=== PATIENT | male | born 1945 | race Caucasian/White ===

== ENCOUNTER 2018-05-31 20:48 | Inpatient (IN) | payer OTHER ==
[~2018-05-31] VITALS: Ht 167.6 cm; Wt 108.2 kg
--- NOTE | ~2018-05-31 | EKG ---
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 : 1945 Requested By: Reinaldo Man Order Number: [id number] MD: Johnson Aguilar Measurements Intervals [place] Rate: 81 P: -5 [place]: 179 QRS: -75 QRSD: 167 T: 101 QT: 458 QTc: 532 Interpretive Statements Atrial-sensed ventricular-paced complexes No further rhythm analysis attempted due to paced rhythm LVH with IVCD, LAD and secondary repol abnrm Prolonged QT interval No previous ECG available for comparison Electronically Signed On 05-31-2018 23:12:53 CDT by Johnson Aguilar [email or web address] <ELECTRONICALLY SIGNED> By: Johnson Aguilar MD 05/31/18 2312 48 48 Johnson Aguilar MD /EPI
--- NOTE | ~2018-05-31 | EKG ---
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
--- NOTE | ~2018-05-31 | EKG ---
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1945 Requested By: Babar Gil Order Number: [id number] MD: Johnson Aguilar Measurements Intervals [place] Rate: 61 P: -53 [place]: 166 QRS: -78 QRSD: 170 T: 109 QT: 500 QTc: 504 Interpretive Statements Ventricular-paced complexes No further analysis attempted due to paced rhythm Compared to ECG 06/01/2018 15:29:46 Atrial-sensed ventricular-paced complex(es) or rhythm no longer present Electronically Signed On 06-02-2018 13:31:38 CDT by Johnson Aguilar [email or web address] <ELECTRONICALLY SIGNED> By: Johnson Aguilar MD 06/02/18 1331 0754 0754 Johnson Aguilar MD /EPI
--- NOTE | ~2018-05-31 | CATHLAB ---
[facility] [address] [place] [address] INVASIVE PROCEDURE REPORT Name: DILEEP VALDOVINOS Room #: 204-P [facility] IN [facility].#: [id number] Admission: 05/31/18 Attend Phys: Cameron Barrios Discharge: 06/02/18 Date of : 45 Date of Service: 06/03/18 1348 Report #: [id number] THIS REPORT FOR: //name// APPROVED REPORT Study performed: 06/01/2018 12:52:54 Patient Details Patient Status: In-Patient Room #: The patient is a 73 year-old male Event Personnel Babar Gil Senior Report Developer, Candy Delacruz, Marshall Larios Knisely, Ceola RN corporate traffic manager Performed Art Access - R femoral artery* 25281 Initial Mod Sed Same Phys/QHP Gr5y 227542 22618 Mod Sed Same Phys/QHP Ea 945495 Left Heart Cath Coronaries, Bypass Grafts 9350485 LHCCORCABG JOSE ANTONIO Revasc Graft Single OM C9604 SVGREVSING Hemostasis w/ Mynx Indication Non-STEMI , Dyspnea, Unstable angina Risk Factors Chronic Lung DiseaseHypercholesterolemia, Hypertension, Tobacco History () Previous Procedures/Diagnoses Previous CABG Procedure Narrative The patient was brought urgently to the Cardiac Catheterization Laboratory and was prepped and draped in a sterile manner. The Right Groin^ was infiltrated with 1% Lidocaine subcutaneous anesthesia. A PINNACLE 6FR Sheath #[id number] sheath was inserted into the RFA^. Coronary angiography was performed using coronary diagnostic catheters. The right coronary system was accessed and visualized with a JR 4 catheter. The left coronary system was accessed and visualized with a JL 5 catheter. The left ventricle was accessed and visualized with a Pigtail catheter. Left ventriculogram was performed in HAGAN projection. Pre-demployment femoral angiogram was performed . Closure device was deployed with a 6 Fr Mynx. The patient tolerated the procedure well and there were no complications associated with the procedure. A hematoma occurred. [address] [address] INVASIVE PROCEDURE REPORT Name: DILEEP VALDOVINOS Room #: 204-P [facility]#: [id number] Admission: 05/31/18 Attend Phys: Cameron Barrios Discharge: 06/02/18 Date of : 45 Date of Service: 06/03/18 1348 Report #: [id number] Intraoperative Conscious Sedation Sedation start time: 13:35 Case end Time: 14:32 Fentanyl 2550 mcg Versed 2 mg Fluoro Time: 20.00 minutes Dose: DAP 30814.00 cGycm2 2192 mGy Contrast Type and Amount: Visipaque 200 ml Coronary Angiography The patient's coronary anatomy is co- dominant. [place] Artery Percent Stenosis Left Main: % Prox LAD: 100 % Mid/Distal LAD: % Circumflex: 100 % RCA: 100 % Ramus: % Diagnostic Cath LAD There is a patent MATTHEWS graft with an end-to-side side anastomosis to the mid/distal LAD. Diagonal 2 There is a patent SVG with an end-to-side anastomosis to the second diagonal artery. There is both retrograde and antegrade blood flow in the diagonal artery. Retrograde, the blood fills a small segment of the mid LAD and then fills the first diagonal artery. OM2 There is an SVG with an end-to-side anastomosis to OM 2. After the anastomosis, there is retrograde flow into OM1. Within the mid segment of the vein graft, there is a severe, discrete occlusion, 95%. R PDA There is a patent SVG with an end to side anastomosis to the PDA. After the anastomosis, there is both retrograde and antegrade flow within the PDA. Left Ventriculography The left ventricle is normal in size with decreased contractility. The left ventricular ejection fraction is estimated to be 40-45%. There is hypokinesis of the apical segment. Hemodynamics The aortic pressure is 178/85 mmHg with a mean of 117 mmHg. The left ventricular pressure is 182/9 mmHg with a mean of mmHg. The left ventricular end diastolic pressure is 27 mmHg. PCI Technique Lesion Anticoagulation was achieved with Angiomax. Percutaneous coronary intervention was performed on the SVG to second obtuse marginal [facility] [address] [place] [address] INVASIVE PROCEDURE REPORT Name: DILEEP VALDOVINOS Room #: 204-P [facility] IN M.R.#: [id number] Admission: 05/31/18 Attend Phys: Cameron Barrios Discharge: 06/02/18 Date of : 45 Date of Service: 06/03/18 1348 Report #: [id number] artery. The lesion stenosis prior to intervention was 95% with CELE 3 flow. A VISTA 6FR AR 1 #[id number] Guide Catheter was used to engage the ostium. A Luge Wire .014 x 182CM #[id number] Interventional Guidewire was used to cross the lesion. BALLOON DILATION A Balloon catheter Euphora RX 2.5 x 12 #[id number] was inserted and inflated up to 14.00atm for 16seconds. STENT DEPLOYMENT A drug-eluting stent RESOLUTE JULES RX 3.5 X 18 #[id number] was inserted and inflated up to 18.00atm for 20seconds. Final angiography reveals 5 % stenosis with CELE 3 flow. Conclusion 1. Successful insertion of a drug-eluting stent into the mid segment of the SVG to OM 2/OM 1. 2. Patent MATTHEWS to mid LAD. 3. Patent SVG to D2/D1. 4. Patent SVG to PDA. 5. Mild to moderate segmental LV dysfunction. 6. Recommend dual antiplatelet therapy and risk factor management. <ELECTRONICALLY SIGNED> By: Babar Gil MD 06/03/188 47 47 Babar Gil MD /INF
--- NOTE | ~2018-05-31 | HC ---
[facility] [address] [place] [address] CONSULTATION Name: DILEEP VALDOVINOS Katie Room #: 204-P [facility] IN M.R.#: [id number] Admission: 05/31/18 Attend Phys: Cameron James Discharge: 06/02/18 Date of : 45 Report #: [id number] THIS REPORT FOR: //name// CC: Cameron Painting DATE OF SERVICE: 06/01/2018 TYPE OF REPORT: Cardiology consultation. CHIEF COMPLAINT: Chest pain. HISTORY OF PRESENT ILLNESS: This is a 73-year-old gentleman with a history of CABG, presenting with chest discomfort. Last evening, he developed a left-sided chest discomfort, radiating into the left shoulder and central chest area. He developed nausea and diaphoresis. There is no history of fever, dyspnea or palpitations. EMS was called and he was given aspirin and nitro with relief of symptoms. The whole episode lasted for about an hour. He has not had any further episodes. There is no history of PND, diarrhea or orthopnea. He has a history of bypass in 2003. Also, has a history of COPD, heart block status post permanent pacemaker, hypertension and diabetes mellitus. He has not been taking aspirin for the last few years, there was some confusion regarding his medications. He has not followed up with his bow maker in several years. PAST MEDICAL HISTORY: As above, CABG in 2003, diabetes mellitus, noncompliance, COPD, permanent pacemaker and hypertension. ALLERGIES: Include CODEINE and MORPHINE. MEDICATIONS: Include levothyroxine, glimepiride, omeprazole, atorvastatin 40 mg, Imdur 30, Lasix 20, lisinopril 20 and metoprolol twice a day. SOCIAL HISTORY: Positive tobacco use, a 3/4 of a pack per day. FAMILY HISTORY: Negative for premature CAD. REVIEW OF SYSTEMS: A full 10-point review of systems performed. Only the pertinent positives and negatives are described in the HPI. PHYSICAL EXAMINATION: VITAL SIGNS: Blood pressure is 140/60 and heart rate is 70 beats per minute. GENERAL APPEARANCE: This is a mildly overweight male, in no acute distress. HEENT: Normocephalic/atraumatic. Oral mucosa moist. NECK: Supple. LUNGS: Clear to auscultation. [facility] [address] [place] [address] CONSULTATION Name: DILEEP VALDOVINOS Room #: 204-[facility] IN [facility].#: [id number] Admission: 05/31/18 Attend Phys: Cameron James Discharge: 06/02/18 Date of : 45 Report #: [id number] CARDIAC: Regular rate and rhythm. S1 and S2 positive. ABDOMEN: Soft and nontender. EXTREMITIES: No cyanosis. No edema. RADIOLOGICAL DATA: ECG reveals atrial sensed ventricular paced rhythm. LABORATORY VALUES: Troponin is 0.53. Sodium is 138 and creatinine is 1.2. Hemoglobin is 14.5. ASSESSMENT AND PLAN: 1. Rll-BJ-jqwjhibyk myocardial infarction. Stable at this time. He has a history of CABG with significant risk factors. I discussed with the patient and his family regarding the risks, benefits and alternatives of continued medical therapy versus cardiac catheterization. Given his presentation, he will proceed with a cardiac catheterization. He will be started on aspirin and Brilinta at this time. 2. Hypertension, continue with medications. 3. Hypercholesterolemia, continue with statins. 4. Diabetes mellitus. Continue with hypoglycemics and check fingersticks. 5. Tobacco use, complete smoking cessation is advised. <ELECTRONICALLY SIGNED> By: Babar Gil MD 06/03/18 0755 1253 2214 Babar Gil MD /nt
--- NOTE | ~2018-05-31 | EKG ---
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 : 1945 Requested By: Babar Gil Order Number: [id number] MD: Johnson Aguilar Measurements Intervals [place] Rate: 74 P: 33 GA: 181 QRS: -78 QRSD: 169 T: 108 QT: 480 QTc: 533 Interpretive Statements Atrial-sensed ventricular-paced rhythm No further analysis attempted due to paced rhythm Compared to ECG 06/01/2018 07:44:51 No significant changes Electronically Signed On 06-01-2018 16:33:32 CDT by Johnson Aguilar [email or web address] <ELECTRONICALLY SIGNED> By: Johnson Aguilar MD 06/01/18 1633 1529 1529 Johnson Aguilar MD /YOLA
[~2018-05-31 20:48] MED LIST: AMARYL2 MG PO; ASPIR 8181 MG PO; ASPIRIN325 PO; CLARITIN10 MG PO; GLUCOPHAGE1000 MG PO; IMDUR 30 MG TAB30 M1 PO; JANUVIA100 MG PO; LASIX 20 MG TAB20 MG PO; LEVOTHYROXINE 0.1 MG PO; LEVOTHYROXINE0.05 MG PO; LEVOTHYROXINE100 MC1 PO; LISINOPRIL20 MG PO; LOPRESSOR50 PO; MYSOLINE50 MG PO; POTASSIUM GLUC500 MG PO; PRILOSEC 20 MG20 MG PO; PROZAC20 MG PO; PROZAC40 MG PO; RED YEAST RICE600 MG PO; SIMVASTATIN40 MG PO; TOPROL XL50 MG PO; UNICOMPLEX M TA1 TA1 PO; VITAMIN D32000 UNI1 PO; ZINC CHELATE50 MG PO
[2018-05-31 20:49] VITALS: BP 106/75
[2018-05-31 21:02] LABS: ABSOLUTE NEUTROPHILS 4.5 thou/uL (1.4-8.2); BASOPHILS 1.1 % (0.0-2.0); EOSINOPHILS 2.9 % (0.0-3.0); HEMATOCRIT 41.6 % (42.0-52.0); HEMOGLOBIN 14.5 gm/dL (14.0-18.0); LYMPHOCYTES 25.5 % (24.0-44.0); MCH 31.1 pg (26.0-34.0); MCHC 34.8 g/dL (28.0-37.0); MCV 89.1 fL (80.0-100.0); MONOCYTES 9.1 % (1.0-8.0); PLATELET COUNT 157 thou/uL (150-400); POLYS 61.4 % (36.0-66.0); RBC 4.66 mil/uL (4.50-6.00); RDW 15.2 % (10.5-14.5); WBC 7.4 thou/uL (4.0-11.0)
[2018-05-31 21:10] LABS: CREATININE 1.2 mg/dL (0.7-1.3); POTASSIUM 3.8 mmol/L (3.5-5.1)
[2018-05-31] MEDS ORDERED: AMARYL4 MG PO ×2 (21:11→21:22)
[2018-05-31] MEDS ORDERED: BIDIL TABLET1 EACH PO (21:12)
[2018-05-31] MEDS ORDERED: SYNTHROID125 MC1 PO (21:12)
[2018-05-31] MEDS ORDERED: MYSOLINE50 MG PO (21:17)
[2018-05-31 21:19] LABS: ALBUMIN 3.2 g/dL (3.4-5.0); MAGNESIUM 1.4 mg/dL (1.8-2.4); TOTAL BILIRUBIN 0.4 mg/dL (<0.1-1.0); TOTAL PROTEIN 7.5 g/dL (6.4-8.2); TROPONIN-I 0.31 ng/mL (<0.06)
[2018-05-31] MEDS ORDERED: OMEPRAZOLE40 MG PO (21:28)
[2018-05-31] MEDS ORDERED: PRIMIDONE 250M250 MG PO (21:29)
[2018-05-31] MEDS ORDERED: FLOMAX0.4 MG PO (21:31)
[2018-05-31] MEDS ORDERED: ATORVASTATIN CA40 MG PO (21:32)
[2018-05-31 22:57] VITALS: BP 125/63
[2018-05-31 23:15] VITALS: BP 121/51
[2018-05-31 23:24] VITALS: BP 111/62
[2018-06-01 04:35] VITALS: BP 134/74
[2018-06-01 05:10] LABS: CHOLESTEROL 90 mg/dL (<200); HDL CHOLESTEROL 26 mg/dL (>40); LDL CHOLESTEROL 29 mg/dL (<100); TC:HDL 3.5 Ratio (Not establshd); TRIGLYCERIDE 176 mg/dL (<150); VLDL 35 mg/dL (<40)
[2018-06-01 05:16] LABS: SERUM ASSESSMENT Clear
[2018-06-01 07:35] VITALS: BP 165/94
[2018-06-01 19:45] VITALS: BP 111/68
[2018-06-02 00:05] LABS: GLYCOHEMOGLOBIN (HGB A1C) 7.8 % (4.8-5.6)
[2018-06-02 04:30] VITALS: BP 152/82
[2018-06-02 05:31] LABS: HEMATOCRIT 40.6 % (42.0-52.0); HEMOGLOBIN 14.1 gm/dL (14.0-18.0); MCHC 34.7 g/dL (28.0-37.0); MCV 89.2 fL (80.0-100.0); RBC 4.55 mil/uL (4.50-6.00); WBC 6.4 thou/uL (4.0-11.0)
[2018-06-02 05:46] LABS: ALBUMIN 3.2 g/dL (3.4-5.0); CALCIUM 9.1 mg/dL (8.5-10.1); CREATININE 0.9 mg/dL (0.7-1.3); POTASSIUM 3.7 mmol/L (3.5-5.1); TOTAL BILIRUBIN 0.6 mg/dL (<0.1-1.0); TOTAL PROTEIN 7.3 g/dL (6.4-8.2)
[2018-06-02 05:48] LABS: TROPONIN-I 1.02 ng/mL (<0.06)
[2018-06-02 07:25] VITALS: BP 156/71
[2018-06-02] MEDS ORDERED: BRILINTA90 MG PO (08:53)
[2018-06-02] MEDS ORDERED: ASPIR 8181 MG PO (08:54)
[2018-06-02 11:00] VITALS: BP 156/71
== END 2018-06-02 11:20 | disposition home or self-care (01) | DRG 246 ==
LOC: ER 20:48 → 2N 22:05 → EROBS 22:05 → 2N 23:15
PROVIDERS: Emergency Medicine; Internal Medicine Cardiovascular Disease; Nurse Practitioner Acute Care
DX: I21.4 Non-ST elevation (NSTEMI) myocardial infarction (principal); I50.41 Acute combined systolic (congestive) and diastolic (congestive) heart failure; E11.9 Type 2 diabetes mellitus without complications; I10 Essential (primary) hypertension; E78.5 Hyperlipidemia, unspecified; F32.9 Major depressive disorder, single episode, unspecified; E03.9 Hypothyroidism, unspecified; J44.9 Chronic obstructive pulmonary disease, unspecified; K21.9 Gastro-esophageal reflux disease without esophagitis; F17.210 Nicotine dependence, cigarettes, uncomplicated; E78.00 Pure hypercholesterolemia, unspecified; E83.42 Hypomagnesemia; G47.33 Obstructive sleep apnea (adult) (pediatric); I49.5 Sick sinus syndrome; Z95.1 Presence of aortocoronary bypass graft; Z95.0 Presence of cardiac pacemaker; Z98.42 Cataract extraction status, left eye; Z98.41 Cataract extraction status, right eye; Z88.6 Allergy status to analgesic agent; Z91.19 Patient's noncompliance with other medical treatment and regimen; Z82.49 Family history of ischemic heart disease and other diseases of the circulatory system; Z79.899 Other long term (current) drug therapy; I11.0 Hypertensive heart disease with heart failure
CPT/HCPCS: 10081

== ENCOUNTER 2018-12-26 17:01 | Inpatient (IN) | payer OTHER ==
[~2018-12-26] VITALS: Ht 167.6 cm; Wt 104.3 kg
[~2018-12-26 17:01] MED LIST changes: +AMARYL4 MG PO; +ATORVASTATIN CA40 MG PO; +BIDIL TABLET1 EACH PO; +BRILINTA90 MG PO; +FLOMAX0.4 MG PO; +OMEPRAZOLE40 MG PO; +PRIMIDONE 250M250 MG PO; +SYNTHROID125 MC1 PO
[2018-12-26 17:04] VITALS: BP 158/81
--- NOTE | 2018-12-26 17:09 | NUR ---
PT HAS MRI CONDITIONAL SAFE PACEMAKER IN R UPPER CHEST - OKAY TO MRI IF CT CONFIRMS LEADS INTACT
[2018-12-26 17:14] LABS: ABSOLUTE NEUTROPHILS 3.5 thou/uL (1.4-8.2); BASOPHILS 0.9 % (0.0-2.0); EOSINOPHILS 2.7 % (0.0-3.0); HEMATOCRIT 43.9 % (42.0-52.0); LYMPHOCYTES 28.9 % (24.0-44.0); MCHC 34.2 g/dL (28.0-37.0); MCV 87.6 fL (80.0-100.0); MONOCYTES 7.6 % (1.0-8.0); PLATELET COUNT 168 thou/uL (150-400); POLYS 59.9 % (36.0-66.0); RBC 5.01 mil/uL (4.50-6.00); RDW 14.8 % (10.5-14.5); WBC 5.9 thou/uL (4.0-11.0)
[2018-12-26 17:20] LABS: ANION GAP 10 mmol/L (7-16); BUN 11 mg/dL (7-18); CALCIUM 8.9 mg/dL (8.5-10.1); CHLORIDE 100 mmol/L (98-107); CO2 26 mmol/L (21-32); CREATININE 0.9 mg/dL (0.7-1.3); GLUCOSE 167 mg/dL (74-106); POTASSIUM 3.7 mmol/L (3.5-5.1); SODIUM 136 mmol/L (136-145)
[2018-12-26] MEDS ORDERED: GLUCOPHAGE1000 MG PO (17:21)
[2018-12-26] MEDS ORDERED: ZYRTEC10 M4 PO (17:21)
[2018-12-26 17:29] LABS: MAGNESIUM 1.9 mg/dL (1.8-2.4); TROPONIN-I <0.06 ng/mL (<0.06)
[2018-12-26 18:17] VITALS: BP 141/75
--- NOTE | 2018-12-26 18:22 | NUR ---
ATTEMPT TO GIVE REPORT AT THIS TIME, WAS TOLD CCU WILL CALL BACK IN 5 MINUTES
--- NOTE | 2018-12-26 18:53 | NUR ---
SECOND ATTEMPT TO CALL, NO ANSWER
[2018-12-26 19:00] VITALS: BP 146/86
[2018-12-27 00:55] VITALS: BP 108/54
[2018-12-27 04:47] VITALS: BP 141/87
[2018-12-27 04:52] LABS: ANION GAP 9 mmol/L (7-16); BUN 10 mg/dL (7-18); CALCIUM 9.2 mg/dL (8.5-10.1); CHLORIDE 103 mmol/L (98-107); CO2 29 mmol/L (21-32); CREATININE 0.9 mg/dL (0.7-1.3); GLUCOSE 130 mg/dL (74-106); POTASSIUM 3.9 mmol/L (3.5-5.1); SODIUM 141 mmol/L (136-145)
[2018-12-27 05:01] LABS: ALBUMIN 3.4 g/dL (3.4-5.0); PHOSPHORUS 3.5 mg/dL (2.5-4.9); TROPONIN-I <0.06 ng/mL (<0.06)
--- NOTE | 2018-12-27 07:28 | NUR ---
PATIENT WAS PICKED UP ABOUT 2029. SWAPPED A PATIENT THAT WAS ENGLISH ONLY FOR THIS ONE WHO SPEEKS NICARAGUAN. PATIENT IS NOT WILLING TO TAKE ANY METFORMIN WHILE HE IS HERE. PATIENT SIG FIG STATED THAT METFORMIN WAS GIVEN AND HE HAD CONTRAST AND ISSUEES WITH HIS KIDNEYS PRESENTED. PATIENT IS HAVE A RESTFUL AND UNEVENTFUL NIGHT. HOURLY ROUNDING WAS DONE. THE BED IS IN A LOW AND LOCKED POSITION.
[2018-12-27 07:49] VITALS: BP 134/82
--- NOTE | 2018-12-27 08:20 | EKG ---
[address] [employer] [place] [address] ELECTROCARDIOGRAM REPORT Name: DILEEP VALDOVINOS Room #: 205-P ADM IN M.R.#: [id number] ������������������ Admission: 12/26/18 ������������������ Attend Phys: Cameron James Discharge: ������������������ Date of : 45 Report #: [id number] ����������������������������������������������������������������� [id number] THIS REPORT FOR: //name// [facility] ED Test Date: 2018-12-26 Test Time: 17:18:11 Pat Name: DILEEP VALDOVINOS Department: Room: 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: TRINA : 1945 Requested By: Eliazar Huff Order Number: [id number] MD: Johnson Aguilar Measurements Intervals [place] Rate: 69 P: 24 [place]: 181 QRS: -78 QRSD: 167 T: 108 QT: 470 QTc: 504 Interpretive Statements Atrial-sensed ventricular-paced complexes No further analysis attempted due to paced rhythm Compared to ECG 06/02/2018 07:54:52 No significant changes Electronically Signed On 12-27-2018 8:20:39 CDT by Johnson Aguilar [email or web address] ��������������������������������������������� <ELECTRONICALLY SIGNED> ���������������������������������������� By: Johnson Aguilar MD ��������������������������������������������� 04/819 17 17 Johnson Aguilar MD /YOLA
--- NOTE | 2018-12-27 08:20 | EKG ---
[place] [address] [facility] [place] [address] ELECTROCARDIOGRAM REPORT Name: DILEEP VALDOVINOS Room #: 205-P ADM IN M.R.#: [id number] ������������������ Admission: 12/26/18 ������������������ Attend Phys: Cameron James Discharge: ������������������ Date of : 45 Report #: [id number] ����������������������������������������������������������������� [id number] THIS REPORT FOR: //name// [facility] ED Test Date: 2018-12-26 Test Time: 17:02:45 Pat Name: DILEEP VALDOVINOS Department: Room: [facility] Gender: M Commercial Director: TRINA : 1945 Requested By: Eliazar Huff Order Number: [id number] MD: Johnson Aguilar Measurements Intervals [place] Rate: 81 P: -10 MN: 87 QRS: -77 QRSD: 167 T: 106 QT: 451 QTc: 524 Interpretive Statements Atrial-ventricular dual-paced rhythm No further analysis attempted due to paced rhythm Compared to ECG 06/02/2018 07:54:52 No significant changes Electronically Signed On 12-27-2018 8:20:33 CDT by Johnson Aguilar [email or web address] ��������������������������������������������� <ELECTRONICALLY SIGNED> ���������������������������������������� By: Johnson Aguilar MD ��������������������������������������������� 12/27/18 0820 01 01 Johnson Aguilar MD /YOLA
--- NOTE | 2018-12-27 08:20 | EKG ---
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: : 1945 Requested By: Eliazar Huff Order Number: [id number] MD: Johnson Aguilar Measurements Intervals [place] Rate: 74 P: 33 [place]: 182 QRS: -76 QRSD: 166 T: 107 QT: 460 QTc: 511 Interpretive Statements Atrial-sensed ventricular-paced rhythm No further analysis attempted due to paced rhythm Compared to ECG 06/02/2018 07:54:52 No significant changes Electronically Signed On 12-27-2018 8:20:45 CDT by Johnson Aguilar [email or web address] ��������������������������������������������� <ELECTRONICALLY SIGNED> ���������������������������������������� By: Johnson Aguilar MD ��������������������������������������������� 12/27/18 0820 Johnson Aguilar MD /YOLA
--- NOTE | 2018-12-27 10:06 | CATHLAB ---
[facility] [address] [place] [address] INVASIVE PROCEDURE REPORT Name: DILEEP VALDOVINOS Room #: 205-P [facility] IN [facility].#: [id number] ������������� Admission: 12/26/18 ������������� Attend Phys: Cameron Barrios Discharge: ��� ������������� ��� Date of : 45 Date of Service: 12/27/18 1005 �� Report #: [id number] �������� ��������������������������������������������[id number] THIS REPORT FOR: //name// APPROVED REPORT Study performed: 12/27/2018 08:14:00 Patient Details The patient is a 73 year-old male Event Personnel Babar Gil Polisher Hand, Vlad Zuluaga, Macey Julio RN, Candy Delacruz Scrub Procedures Performed Left Heart Cath Coronaries, Bypass Grafts [id number] [facility] Indication Unstable angina , Chest pain Risk Factors Chronic Lung DiseaseHypercholesterolemia, Coronary Artery DiseaseHypertension, Diabetes Tobacco History () Previous Procedures/Diagnoses Previous CABGPrevious PCI Procedure Narrative The Right Groin^ was infiltrated with 1% Lidocaine subcutaneous anesthesia. A PINNACLE 4FR Sheath #[id number] sheath was inserted into the RFA^. Coronary angiography was performed using coronary diagnostic catheters. The right coronary system was accessed and visualized with a JR4 catheter. The left coronary system was accessed and visualized with a JL5 catheter. The left ventricle was accessed and visualized with a PIGTAIL catheter. Left ventricular/Aortic Valve gradient assessed via catheter pullback. Hemostasis was obtained with manual pressure following sheath removal without any complications. The patient tolerated the procedure well and there were no complications associated with the procedure. There was no hematoma. Intraoperative Conscious Sedation Sedation start time: 819 Case end Time: 09 [facility] [address] [place] [address] INVASIVE PROCEDURE REPORT Name: DILEEP VALDOVINOS Room #: 205-P [facility] IN [facility].#: [id number] ������������� Admission: 12/26/18 ������������� Attend Phys: Cameron Barrios Discharge: ��� ������������� ��� Date of : 45 Date of Service: 12/27/18 1005 �� Report #: [id number] �������� ��������������������������������������������[id number] Versed 1 mg Fluoro Time: 12.09 minutes Dose: DAP 43759.00 cGycm2 Contrast Type and Amount: Omnipaque 175 ml Coronary Angiography The patient's coronary anatomy is co- dominant. [place] Artery Percent Stenosis Left Main: % Prox LAD: % Mid/Distal LAD: 100 % Circumflex: 100 % RCA: 100 % Ramus: % Diagnostic Cath LAD There is 100% occlusion of the mid LAD, just after giving off a small first diagonal artery and septal mask designer. There is a patent MATTHEWS graft with an end-to-side anastomosis to the mid LAD. Diagonal 3 There is a patent SVG with an end-to-side anastomosis to a moderate size third diagonal artery. After the anastomosis, there is retrograde filling of a short segment of the mid LAD and fills the second diagonal artery. OM2 There is a patent SVG with an end to side anastomosis to a moderate size OM 2 artery. After the anastomosis, there is retrograde filling of a moderate size OM 1 artery. R PDA There is a patent SVG with an end-to-side anastomosis to the PDA. Left Ventriculography The left ventricle is mildly dilated in size with decreased contractility. The left ventricular ejection fraction is estimated to be 40-45%. There is hypokinesis of the apical region. Hemodynamics The aortic pressure is 145/75 mmHg with a mean of 106 mmHg. The left ventricular pressure is 129/5 mmHg with a mean of mmHg. The left ventricular end diastolic pressure is 24 mmHg. Conclusion 1. Patent MATTHEWS to the LAD. 2. Patent SVG to OM 2 and retrograde filling of OM1. There is a patent stent within the mid segment of the vein graft. 3. Patent SVG to Diagonal artery 3, with retrograde filling of Diagonal artery 2. 4. Patent SVG to PDA. [facility] [address] [place] [address] INVASIVE PROCEDURE REPORT Name: ARUNADILEEP E Room #: 205-P [facility] IN M.R.#: [id number] ������������� Admission: 12/26/18 ������������� Attend Phys: Cameron Barrios Discharge: ��� ������������� ��� Date of : 45 Date of Service: 12/27/18 1005 �� Report #: [id number] �������� ��������������������������������������������[id number] 5. Mild to moderate segmental LV dysfunction. 6. Recommend aggressive risk factor management. ��������������������������������������������� <ELECTRONICALLY SIGNED> ���������������������������������������� By: Babar Gil MD ��������������������������������������������� 12/27/185 04 04 Babar Gil MD /INF
[2018-12-27 11:18] VITALS: BP 153/83
[2018-12-27 15:03] VITALS: BP 153/83
== END 2018-12-27 15:44 | disposition home or self-care (01) | DRG 286 ==
LOC: ER 17:01 → EROBS 18:01 → 2N 18:01
PROVIDERS: Emergency Medicine; ADMIT Hospitalist
PROC: B2131ZZ Fluoroscopy of Multiple Coronary Artery Bypass Grafts using Low Osmolar Contrast (ICD-10-PCS; principal; 2018-12-27)
PROC: 4A023N7 Measurement of Cardiac Sampling and Pressure, Left Heart, Percutaneous Approach (ICD-10-PCS; principal; 2018-12-27)
PROC: B2181ZZ Fluoroscopy of Left Internal Mammary Bypass Graft using Low Osmolar Contrast (ICD-10-PCS; principal; 2018-12-27)
PROC: B2111ZZ Fluoroscopy of Multiple Coronary Arteries using Low Osmolar Contrast (ICD-10-PCS; principal; 2018-12-27)
DX: R07.89 Other chest pain (principal); I50.33 Acute on chronic diastolic (congestive) heart failure; E11.9 Type 2 diabetes mellitus without complications; F32.9 Major depressive disorder, single episode, unspecified; K21.9 Gastro-esophageal reflux disease without esophagitis; E03.9 Hypothyroidism, unspecified; J44.9 Chronic obstructive pulmonary disease, unspecified; F17.210 Nicotine dependence, cigarettes, uncomplicated; G47.33 Obstructive sleep apnea (adult) (pediatric); I10 Essential (primary) hypertension; E78.5 Hyperlipidemia, unspecified; Z96.652 Presence of left artificial knee joint; Z95.0 Presence of cardiac pacemaker; Z98.42 Cataract extraction status, left eye; Z95.1 Presence of aortocoronary bypass graft; Z98.41 Cataract extraction status, right eye; Z88.6 Allergy status to analgesic agent; Z82.49 Family history of ischemic heart disease and other diseases of the circulatory system; Z79.82 Long term (current) use of aspirin; Z79.899 Other long term (current) drug therapy; I25.2 Old myocardial infarction
CPT/HCPCS: 10081; 10194

== ENCOUNTER 2019-03-16 23:19 | Emergency (ER) | payer OTHER ==
[~2019-03-16] VITALS: Ht 167.6 cm; Wt 113.4 kg
[~2019-03-16 23:19] MED LIST changes: +ZYRTEC10 M4 PO
[2019-03-17 00:02] LABS: ABSOLUTE NEUTROPHILS 4.6 thou/uL (1.4-8.2); BASOPHILS 0.6 % (0.0-2.0); EOSINOPHILS 1.7 % (0.0-3.0); HEMATOCRIT 41.4 % (42.0-52.0); HEMOGLOBIN 13.7 gm/dL (14.0-18.0); LYMPHOCYTES 22.8 % (24.0-44.0); MCH 29.5 pg (26.0-34.0); MCV 89.4 fL (80.0-100.0); MONOCYTES 5.8 % (1.0-8.0); PLATELET COUNT 162 thou/uL (150-400); POLYS 69.1 % (36.0-66.0); RBC 4.63 mil/uL (4.50-6.00); RDW 15.7 % (10.5-14.5); WBC 6.6 thou/uL (4.0-11.0)
[2019-03-17 00:07] LABS: ANION GAP 19 mmol/L (7-16); BUN 15 mg/dL (7-18); CALCIUM 8.4 mg/dL (8.5-10.1); CHLORIDE 97 mmol/L (98-107); CO2 18 mmol/L (21-32); CREATININE 1.1 mg/dL (0.7-1.3); GLUCOSE 220 mg/dL (74-106); POTASSIUM 3.8 mmol/L (3.5-5.1); SODIUM 134 mmol/L (136-145)
[2019-03-17] MEDS ORDERED: JANUMET XR 1001 EACH PO (01:26)
[2019-03-17 03:00] LABS: URINE BILIRUBIN NEGATIVE (Negative); URINE BLOOD 3+ (Negative); URINE CLARITY CLEAR; URINE COLOR YELLOW; URINE GLUCOSE-RANDOM* 1+ (Negative); URINE KETONES 1+ (Negative); URINE LEUKOCYTES-REFLEX NEGATIVE (Negative); URINE NITRITE-REFLEX NEGATIVE (Negative); URINE PROTEIN (DIPSTICK) NEGATIVE (Negative); URINE SPECIFIC GRAVITY 1.025 (1.005-1.035)
[2019-03-17 03:09] LABS: AMP/METHAMP Negative (Negative); BARBITURATES Negative (Negative); BENZODIAZEPINES Negative (Negative); COCAINE Negative (Negative); METHADONE Negative (Negative); OPIATES Negative (Negative); PCP Negative (Negative)
[2019-03-17 03:28] LABS: BACTERIA-REFLEX None Seen /HPF (None Seen); CASTS None Seen /LPF (None Seen); CRYSTALS None Seen /LPF (None Seen); MUCUS None Seen strn/LPF (None Seen); SQUAMOUS None Seen /LPF (0-3); URINE RBC 3-10 Few /HPF (0-2); URINE WBC-REFLEX None Seen /HPF (0-5)
[2019-03-17 06:58] VITALS: BP 129/66
== END 2019-03-17 07:05 | disposition home or self-care (01) ==
LOC: ER 23:19
PROVIDERS: Emergency Medicine
DX: F10.129 Alcohol abuse with intoxication, unspecified (principal); R31.29 Other microscopic hematuria; E11.9 Type 2 diabetes mellitus without complications; F17.210 Nicotine dependence, cigarettes, uncomplicated; I10 Essential (primary) hypertension; E78.5 Hyperlipidemia, unspecified; G47.30 Sleep apnea, unspecified; F32.9 Major depressive disorder, single episode, unspecified; K21.9 Gastro-esophageal reflux disease without esophagitis; E03.9 Hypothyroidism, unspecified; J44.9 Chronic obstructive pulmonary disease, unspecified; Z95.0 Presence of cardiac pacemaker; Z88.5 Allergy status to narcotic agent; Y90.0 Blood alcohol level of less than 20 mg/100 ml

== ENCOUNTER 2019-03-17 07:17 | Emergency (ER) | payer OTHER ==
[~2019-03-17] VITALS: Ht 167.6 cm; Wt 109.8 kg
[~2019-03-17 07:17] MED LIST changes: +JANUMET XR 1001 EACH PO
[2019-03-17 07:59] LABS: ANION GAP 16 mmol/L (7-16); BUN 12 mg/dL (7-18); CALCIUM 8.8 mg/dL (8.5-10.1); CHLORIDE 97 mmol/L (98-107); CO2 19 mmol/L (21-32); CREATININE 0.9 mg/dL (0.7-1.3); GLUCOSE 145 mg/dL (74-106); POTASSIUM 3.9 mmol/L (3.5-5.1); SODIUM 132 mmol/L (136-145)
[2019-03-17 08:08] LABS: APTT 28.9 Seconds (24.5-32.8); PROTIME 10.4 Seconds (9.3-11.4)
[2019-03-17 08:10] LABS: ALBUMIN 3.3 g/dL (3.4-5.0); MAGNESIUM 1.6 mg/dL (1.8-2.4); SGOT 23 U/L (15-37); SGPT 40 U/L (30-65); TOTAL BILIRUBIN 0.4 mg/dL (<0.1-1.0); TOTAL PROTEIN 7.5 g/dL (6.4-8.2); TROPONIN-I <0.06 ng/mL (<0.06)
[2019-03-17 11:00] VITALS: BP 128/62
--- NOTE | 2019-03-17 12:14 | EKG ---
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: ELAINE : 1945 Requested By: Reinaldo Man Order Number: [id number] MD: Johnson Aguilar Measurements Intervals [place] Rate: 81 P: 63 [place]: 187 QRS: -73 QRSD: 173 T: 111 QT: 456 QTc: 530 Interpretive Statements Atrial-sensed ventricular-paced rhythm No further analysis attempted due to paced rhythm Compared to ECG 12/26/2018 17:28:09 No significant changes Electronically Signed On 03-17-2019 12:14:37 CDT by Johnson Aguilar [email or web address] ��������������������������������������������� <ELECTRONICALLY SIGNED> ���������������������������������������� By: Johnson Aguilar MD ��������������������������������������������� 03/17/19 1214 [id number] Johnson Aguilar MD /YOLA
== END 2019-03-17 11:00 | disposition home or self-care (01) ==
LOC: ER 07:17
PROVIDERS: Emergency Medicine
DX: S80.211A Abrasion, right knee, initial encounter (principal); F10.129 Alcohol abuse with intoxication, unspecified; F32.9 Major depressive disorder, single episode, unspecified; H50.9 Unspecified strabismus; F17.210 Nicotine dependence, cigarettes, uncomplicated; E11.9 Type 2 diabetes mellitus without complications; I10 Essential (primary) hypertension; E78.5 Hyperlipidemia, unspecified; G47.30 Sleep apnea, unspecified; K21.9 Gastro-esophageal reflux disease without esophagitis; E03.9 Hypothyroidism, unspecified; J44.9 Chronic obstructive pulmonary disease, unspecified; Z95.0 Presence of cardiac pacemaker; Z88.5 Allergy status to narcotic agent; W18.39XA Other fall on same level, initial encounter; Y92.89 Other specified places as the place of occurrence of the external cause; Y93.89 Activity, other specified; Y99.8 Other external cause status; Y90.0 Blood alcohol level of less than 20 mg/100 ml